=== PATIENT | female | born 1930 | race African-American/Black ===

== ENCOUNTER 2018-12-23 18:06 | Inpatient (IN) | payer MEDICARE, BC ==
[~2018-12-23] VITALS: Ht 152.4 cm; Wt 76.2 kg
[2018-12-23 20:54] LABS: BASOPHILS % 0.7 % (0.0-2.0); EOSINOPHILS % 0.9 % (0.0-5.0); HEMATOCRIT. 33.3 % (36.0-48.0); HEMOGLOBIN. 10.8 g/dL (12.0-16.0); LYMPHOCYTES % 8.6 % (20.0-50.0); MEAN CORPUSCULAR HEMOGLOBIN 30.7 pg (28.0-32.0); MEAN CORPUSCULAR VOLUME 94.8 fL (81.0-99.0); MONOCYTES % 14.1 % (2.0-8.0); NEUTROPHILS % 75.7 % (40.0-76.0); PLATELET 436 x1000/uL (130-400); RED BLOOD CELL COUNT 3.51 mill/uL (4.2-5.4); RED CELL DISTRIBUTION WIDTH 17.6 % (11.6-14.6)
[2018-12-23 20:57] LABS: CHLORIDE 99 mEq/L (98-107)
[2018-12-23 20:58] LABS: INR 1.2; PARTIAL THROMBOPLASTIN TIME 30.3 sec (23.4-31.0); PROTHROMBIN TIME 11.7 sec (9.1-11.1)
[2018-12-23 21:20] LABS: CLARITY URINE CLEAR (CLEAR); COLOR URINE YELLOW (YELLOW); KETONES URINE NEGATIVE (NEGATIVE); LEUKOCYTE ESTERASE URINE NEGATIVE (NEGATIVE); NITRITE URINE NEGATIVE (NEGATIVE); OCCULT BLOOD URINE NEGATIVE (NEGATIVE); PROTEIN URINE 2+ (NEGATIVE); UROBILINOGEN URINE 0.2 E.U./dL (0.2-1.0)
[2018-12-23] MEDS ORDERED: MAGNESIUM/ALUMINUM HYDROXIDE/SIMETHICONE 30ML UDC PO PRN (23:15)
[2018-12-23] MEDS ORDERED: GUAIFENESIN 200MG/10ML SUGAR FREE UDC PO PRN (23:15)
[2018-12-23] MEDS ORDERED: ACETAMINOPHEN 325MG TABLET PO PRN (23:15)
[2018-12-23] MEDS ORDERED: IPRATROPIUM/ALBUTEROL 0.5-3(2.5)MG/3ML NEB INH PRN (23:15)
[2018-12-23] MEDS ORDERED: ONDANSETRON HCL 4MG/2ML INJ IV PRN (23:15)
[2018-12-23] MEDS ORDERED: DIPHENHYDRAMINE 50MG/ML VIAL IV PRN (23:15)
[2018-12-24] MEDS ORDERED: TRAMADOL 50MG TABLET PO PRN
[2018-12-24] MEDS ORDERED: IPRATROPIUM/ALBUTEROL 0.5-3(2.5)MG/3ML NEB HHN PRN
[2018-12-24] MEDS: CLONIDINE 0.1MG TABLET PO PRN (01:34)
[2018-12-24] MEDS ORDERED: INSULIN GLARGINE UD 100 UNITS/ML SYR SUBCUT NR (02:15)
[2018-12-24 03:00] VITALS: BP 107/56
[2018-12-24 03:25] VITALS: BP 107/56
[2018-12-24] MEDS: BLOOD SUGAR DIAGNOSTIC STRIP TEST SCH ×4 (06:40→20:55)
[2018-12-24] MEDS: INSULIN LISPRO 100 UNITS/ML SUBCUT SCH ×4 (06:41→21:00)
[2018-12-24] MEDS: DEXTROSE 50% WATER 50ML SYRINGE IV PRN ×3 (06:42→20:55)
[2018-12-24 07:30] VITALS: BP 149/85
[2018-12-24] MEDS ORDERED: BRIM.2 LEFTEYE (08:40)
[2018-12-24] MEDS ORDERED: GABA-529 PO (08:40)
[2018-12-24] MEDS ORDERED: ACET-2178 PO (08:40)
[2018-12-24] MEDS ORDERED: AGGR MT (08:40)
[2018-12-24] MEDS ORDERED: TRAM50TA3 PO (08:40)
[2018-12-24] MEDS ORDERED: ATOR40TA70 PO (08:40)
[2018-12-24] MEDS ORDERED: AMLO10TA4 PO (08:40)
[2018-12-24] MEDS ORDERED: ALBU05 IH (08:40)
[2018-12-24] MEDS ORDERED: FAMO-135 PO (08:40)
[2018-12-24] MEDS ORDERED: COLL30OI TP (08:47)
[2018-12-24] MEDS ORDERED: LANTUSUD SUBCUT (08:47)
[2018-12-24] MEDS: AMLODIPINE 10MG TABLET PO SCH (10:06)
[2018-12-24] MEDS: SODIUM CHLORIDE 0.9% INJ 3ML FLUSH IVF SCH ×3 (10:10→21:29)
[2018-12-24 12:00] VITALS: BP 145/56
[2018-12-24 16:30] VITALS: BP 131/65
[2018-12-24 20:00] VITALS: BP 127/61
[2018-12-24] MEDS: ATORVASTATIN CALCIUM 40MG TABLET PO SCH (21:29)
[2018-12-24] MEDS: FAMOTIDINE 20MG TABLET PO SCH (21:29)
[2018-12-24] MEDS ORDERED: INSULIN GLARGINE UD 100 UNITS/ML SYR SUBCUT SCH ×2 (22:00)
[2018-12-25] VITALS: BP 107/41
[2018-12-25 04:00] VITALS: BP_SYST 137
[2018-12-25] MEDS: BLOOD SUGAR DIAGNOSTIC STRIP TEST SCH ×4 (05:53→21:01)
[2018-12-25] MEDS: INSULIN LISPRO 100 UNITS/ML SUBCUT SCH ×4 (05:53→21:44)
[2018-12-25] MEDS: SODIUM CHLORIDE 0.9% INJ 3ML FLUSH IVF SCH ×3 (06:41→21:13)
[2018-12-25 07:57] LABS: HEMATOCRIT. 30.5 % (36.0-48.0); HEMOGLOBIN. 9.7 g/dL (12.0-16.0); MEAN CORPUSCULAR HEMOGLOBIN 30.3 pg (28.0-32.0); MEAN CORPUSCULAR VOLUME 94.8 fL (81.0-99.0); MEAN PLATELET VOLUME 8.2 fl (7.4-10.4); PLATELET 344 x1000/uL (130-400); RED BLOOD CELL COUNT 3.22 mill/uL (4.2-5.4); RED CELL DISTRIBUTION WIDTH 18.4 % (11.6-14.6)
[2018-12-25 08:00] VITALS: BP 110/63
[2018-12-25] MEDS: AMLODIPINE 10MG TABLET PO SCH ×2 (09:00→09:21)
[2018-12-25 14:07] LABS: PLATELET ESTIMATE NORMAL
[2018-12-25 16:00] VITALS: BP 131/70
[2018-12-25] MEDS: ATORVASTATIN CALCIUM 40MG TABLET PO SCH (21:13)
[2018-12-25] MEDS: FAMOTIDINE 20MG TABLET PO SCH (21:13)
[2018-12-26] VITALS (17 sets, daily range): BP systolic 112–146; BP diastolic 46–81
[2018-12-26] MEDS: CLONIDINE 0.1MG TABLET PO PRN (00:14)
[2018-12-26] MEDS: SODIUM CHLORIDE 0.9% INJ 3ML FLUSH IVF SCH ×2 (06:11→13:55)
[2018-12-26] MEDS: BLOOD SUGAR DIAGNOSTIC STRIP TEST SCH ×4 (06:11→20:31)
[2018-12-26] MEDS: INSULIN LISPRO 100 UNITS/ML SUBCUT SCH ×4 (06:12→20:31)
[2018-12-26] MEDS ORDERED: CEFAZOLIN 1000MG PREMIX 50 ML IV ONE ×2 (06:45→07:22)
[2018-12-26] MEDS ORDERED: ALTEPLASE 2MG/VIAL ITC ONE (06:45)
[2018-12-26] MEDS ORDERED: SODIUM BICARBONATE 4% (2.4MEQ) 5ML VIAL IV ONE (07:26)
[2018-12-26] MEDS ORDERED: LIDOCAINE HCL 1% 20ML VIAL (Pyxis) INJ ONE (07:26)
[2018-12-26 07:27] LABS: INR 1.1; PARTIAL THROMBOPLASTIN TIME 30.2 sec (23.4-31.0); PROTHROMBIN TIME 11.5 sec (9.1-11.1)
[2018-12-26] MEDS ORDERED: HEPARIN 1000 UNITS/ML 10ML ONE (07:27)
[2018-12-26] MEDS ORDERED: IOHEXOL-300 100 ML BOTTLE ONE (07:27)
[2018-12-26 07:49] LABS: BASOPHILS % 0.5 % (0.0-2.0); EOSINOPHILS % 0.3 % (0.0-5.0); HEMATOCRIT. 27.6 % (36.0-48.0); MEAN CORPUSCULAR HEMOGLOBIN 30.6 pg (28.0-32.0); MEAN CORPUSCULAR VOLUME 94.4 fL (81.0-99.0); NEUTROPHILS % 77.2 % (40.0-76.0); PLATELET 276 x1000/uL (130-400); RED BLOOD CELL COUNT 2.93 mill/uL (4.2-5.4); RED CELL DISTRIBUTION WIDTH 17.4 % (11.6-14.6)
[2018-12-26] MEDS: AMLODIPINE 10MG TABLET PO SCH (09:00)
[2018-12-26] MEDS ORDERED: FENTANYL CITRATE/PF 50MCG/ML 2ML VIAL ONE (09:57)
[2018-12-26] MEDS ORDERED: HEPARIN 5000 UNITS/ML VIAL IV NR (10:45)
== END 2018-12-26 21:16 | DRG 252 ==
LOC: ER 18:14 → 8WST 21:53 → ENRESERV 12-24 02:22
PROVIDERS: ADMIT Internal Medicine; ATTEND Internal Medicine
PROC: 5A1D70Z Performance of Urinary Filtration, Intermittent, Less than 6 Hours Per Day (ICD-10-PCS; 2018-12-24)
PROC: 06HY33Z Insertion of Infusion Device into Lower Vein, Percutaneous Approach (ICD-10-PCS; 2018-12-24)
PROC: B54BZZA Ultrasonography of Right Lower Extremity Veins, Guidance (ICD-10-PCS; 2018-12-24)
PROC: 5A1D70Z Performance of Urinary Filtration, Intermittent, Less than 6 Hours Per Day (ICD-10-PCS; 2018-12-25)
PROC: 037Y3ZZ Dilation of Upper Artery, Percutaneous Approach (ICD-10-PCS; principal; 2018-12-26)
PROC: 057Y3ZZ Dilation of Upper Vein, Percutaneous Approach (ICD-10-PCS; 2018-12-26)
PROC: 03CY3ZZ Extirpation of Matter from Upper Artery, Percutaneous Approach (ICD-10-PCS; 2018-12-26)
PROC: B31J1ZZ Fluoroscopy of Left Upper Extremity Arteries using Low Osmolar Contrast (ICD-10-PCS; 2018-12-26)
PROC: B51N1ZZ Fluoroscopy of Left Upper Extremity Veins using Low Osmolar Contrast (ICD-10-PCS; 2018-12-26)
PROC: B5181ZZ Fluoroscopy of Superior Vena Cava using Low Osmolar Contrast (ICD-10-PCS; 2018-12-26)
PROC: B51W1ZZ Fluoroscopy of Dialysis Shunt/Fistula using Low Osmolar Contrast (ICD-10-PCS; 2018-12-26)
PROC: 3E05317 Introduction of Other Thrombolytic into Peripheral Artery, Percutaneous Approach (ICD-10-PCS; 2018-12-26)
PROC: 3E03317 Introduction of Other Thrombolytic into Peripheral Vein, Percutaneous Approach (ICD-10-PCS; 2018-12-26)
DX: T82.868A Thrombosis due to vascular prosthetic devices, implants and grafts, initial encounter (principal); N18.6 End stage renal disease; I13.2 Hypertensive heart and chronic kidney disease with heart failure and with stage 5 chronic kidney disease, or end stage renal disease; I96 Gangrene, not elsewhere classified; I69.354 Hemiplegia and hemiparesis following cerebral infarction affecting left non-dominant side; E11.52 Type 2 diabetes mellitus with diabetic peripheral angiopathy with gangrene; I48.92 Unspecified atrial flutter; D64.9 Anemia, unspecified; E78.00 Pure hypercholesterolemia, unspecified; I48.91 Unspecified atrial fibrillation; Z99.2 Dependence on renal dialysis; L89.150 Pressure ulcer of sacral region, unstageable; E11.22 Type 2 diabetes mellitus with diabetic chronic kidney disease; I50.9 Heart failure, unspecified; I70.201 Unspecified atherosclerosis of native arteries of extremities, right leg; Y83.8 Other surgical procedures as the cause of abnormal reaction of the patient, or of later complication, without mention of misadventure at the time of the procedure; Y92.89 Other specified places as the place of occurrence of the external cause; Z79.84 Long term (current) use of oral hypoglycemic drugs; Z88.9 Allergy status to unspecified drugs, medicaments and biological substances
CPT/HCPCS: 36415; 36569; 36905; 71045; 76937; 80048; 82962; 84134; 92610; 93005; 99285; C1725; C1752; C1766; C1769; J0690; J1644; J1815; J2997; J3010; J3490; J7050; Q9967

== ENCOUNTER 2019-01-08 19:11 | Inpatient (IN) | payer MEDICARE, BC ==
[~2019-01-08] VITALS: Ht 162.6 cm; Wt 56.7 kg
[~2019-01-08 19:11] MED LIST: ACET-2178 PO; AGGR MT; ALBU05 IH; AMLO10TA4 PO; ATOR40TA70 PO; BRIM.2 LEFTEYE; COLL30OI TP; FAMO-135 PO; GABA-529 PO; LANTUSUD SUBCUT; TRAM50TA3 PO
[2019-01-08 23:00] LABS: HEMATOCRIT. 30.3 % (36.0-48.0); HEMOGLOBIN. 9.5 g/dL (12.0-16.0); MEAN CORPUSCULAR HEMOGLOBIN 30.4 pg (28.0-32.0); MEAN CORPUSCULAR VOLUME 97.4 fL (81.0-99.0); MEAN PLATELET VOLUME 8.4 fl (7.4-10.4); PLATELET 299 x1000/uL (130-400); RED BLOOD CELL COUNT 3.11 mill/uL (4.2-5.4); RED CELL DISTRIBUTION WIDTH 20.5 % (11.6-14.6)
[2019-01-08 23:03] LABS: CHLORIDE 93 mEq/L (98-107)
[2019-01-08 23:08] LABS: INR 1.2; PARTIAL THROMBOPLASTIN TIME 23.5 sec (23.4-31.0); PROTHROMBIN TIME 11.7 sec (9.1-11.1)
[2019-01-08 23:11] LABS: PHOSPHORUS 5.4 mg/dL (2.5-4.9)
[2019-01-08 23:12] LABS: PLATELET ESTIMATE NORMAL
[2019-01-09] MEDS ORDERED: ASPIRIN 81MG TABLET PO ONE
[2019-01-09] MEDS ORDERED: TRAMADOL 50MG TABLET PO PRN (00:30)
[2019-01-09] MEDS ORDERED: ONDANSETRON HCL 4MG/2ML INJ IV PRN (00:30)
[2019-01-09] MEDS ORDERED: LORAZEPAM 2MG/ML CPJ IV PRN (00:30)
[2019-01-09] MEDS ORDERED: CLONIDINE 0.1MG TABLET PO PRN (00:30)
[2019-01-09] MEDS ORDERED: ACETAMINOPHEN 325MG TABLET PO PRN (00:30)
[2019-01-09] MEDS ORDERED: IPRATROPIUM/ALBUTEROL 0.5-3(2.5)MG/3ML NEB INH PRN (00:30)
[2019-01-09] MEDS ORDERED: MAGNESIUM/ALUMINUM HYDROXIDE/SIMETHICONE 30ML UDC PO PRN (00:30)
[2019-01-09] MEDS ORDERED: INSULIN REGULAR (HUMULIN R) 300UNITS/3ML SUBCUT ONE (00:45)
[2019-01-09 10:00] VITALS: BP 128/53
[2019-01-09 10:30] VITALS: BP 128/53
[2019-01-09] MEDS: SODIUM CHLORIDE 0.9% INJ 3ML FLUSH IVF SCH ×3 (14:00→21:39)
[2019-01-09] MEDS: AMLODIPINE 10MG TABLET PO SCH (15:38)
[2019-01-09] MEDS: ASPIRIN 81MG EC TABLET PO SCH (15:38)
[2019-01-09] MEDS: ENOXAPARIN 80MG/0.8ML SYR SUBCUT SCH (15:43)
[2019-01-09 16:00] VITALS: BP 117/62
[2019-01-09] MEDS ORDERED: DEXTROSE 50% WATER 50ML SYRINGE IV PRN (19:45)
[2019-01-09 20:00] VITALS: BP 116/60
[2019-01-09] MEDS: INSULIN LISPRO 100 UNITS/ML SUBCUT SCH (21:00)
[2019-01-09] MEDS: FAMOTIDINE 20MG TABLET PO SCH (21:23)
[2019-01-09] MEDS: BLOOD SUGAR DIAGNOSTIC STRIP TEST SCH (21:23)
[2019-01-09] MEDS: ATORVASTATIN CALCIUM 40MG TABLET PO SCH (21:23)
[2019-01-09] MEDS: INSULIN GLARGINE UD 100 UNITS/ML SYR SUBCUT SCH (21:40)
[2019-01-10] VITALS (11 sets, daily range): BP systolic 104–144; BP diastolic 48–68
[2019-01-10] MEDS: BLOOD SUGAR DIAGNOSTIC STRIP TEST SCH ×4 (05:59→21:00)
[2019-01-10] MEDS: SODIUM CHLORIDE 0.9% INJ 3ML FLUSH IVF SCH ×2 (05:59→14:00)
[2019-01-10 06:27] LABS: INR 1.1; PARTIAL THROMBOPLASTIN TIME 30.3 sec (23.4-31.0); PROTHROMBIN TIME 11.4 sec (9.1-11.1)
[2019-01-10 06:55] LABS: HEMATOCRIT. 26.8 % (36.0-48.0); HEMOGLOBIN. 8.6 g/dL (12.0-16.0); MEAN CORPUSCULAR VOLUME 96.2 fL (81.0-99.0); MEAN PLATELET VOLUME 8.7 fl (7.4-10.4); PLATELET 316 x1000/uL (130-400); RED BLOOD CELL COUNT 2.79 mill/uL (4.2-5.4); RED CELL DISTRIBUTION WIDTH 19.5 % (11.6-14.6)
[2019-01-10] MEDS: INSULIN LISPRO 100 UNITS/ML SUBCUT SCH ×4 (07:50→21:00)
[2019-01-10] MEDS: AMLODIPINE 10MG TABLET PO SCH (09:00)
[2019-01-10] MEDS: ASPIRIN 81MG EC TABLET PO SCH (09:00)
[2019-01-10 13:02] LABS: PLATELET ESTIMATE NORMAL
[2019-01-10] MEDS ORDERED: SODIUM BICARBONATE 4% (2.4MEQ) 5ML VIAL IV ONE (13:10)
[2019-01-10] MEDS ORDERED: LIDOCAINE HCL 1% 20ML VIAL (Pyxis) INJ ONE (13:10)
[2019-01-10] MEDS ORDERED: IOHEXOL-300 100 ML BOTTLE ONE (13:11)
[2019-01-10] MEDS ORDERED: HEPARIN 1000 UNITS/ML 10ML ONE (13:11)
[2019-01-10] MEDS ORDERED: CEFAZOLIN 1000MG PREMIX 50 ML IV ONE ×2 (13:15→13:50)
[2019-01-10] MEDS ORDERED: HEPARIN 5000 UNITS/ML VIAL IV ONE (15:30)
[2019-01-10] MEDS ORDERED: HEPARIN 5000 UNITS/ML VIAL IV NR (15:30)
[2019-01-10] MEDS: ENOXAPARIN 80MG/0.8ML SYR SUBCUT SCH (17:32)
[2019-01-10] MEDS: FAMOTIDINE 20MG TABLET PO SCH (21:00)
[2019-01-10] MEDS: ATORVASTATIN CALCIUM 40MG TABLET PO SCH (21:00)
[2019-01-10] MEDS: INSULIN GLARGINE UD 100 UNITS/ML SYR SUBCUT SCH (22:00)
[2019-01-11] VITALS (7 sets, daily range): BP systolic 101–130; BP diastolic 41–54
[2019-01-11] MEDS: INSULIN LISPRO 100 UNITS/ML SUBCUT SCH ×4 (06:33→21:00)
[2019-01-11] MEDS: BLOOD SUGAR DIAGNOSTIC STRIP TEST SCH ×4 (06:33→21:26)
[2019-01-11] MEDS: SODIUM CHLORIDE 0.9% INJ 3ML FLUSH IVF SCH ×2 (06:35→18:12)
[2019-01-11 07:03] LABS: BASOPHILS % 0.2 % (0.0-2.0); EOSINOPHILS % 0.1 % (0.0-5.0); HEMATOCRIT. 25.5 % (36.0-48.0); MEAN CORPUSCULAR HEMOGLOBIN 30.5 pg (28.0-32.0); MEAN CORPUSCULAR VOLUME 97.2 fL (81.0-99.0); MEAN PLATELET VOLUME 8.8 fl (7.4-10.4); MONOCYTES % 8.5 % (2.0-8.0); NEUTROPHILS % 81.2 % (40.0-76.0); PLATELET 308 x1000/uL (130-400); RED BLOOD CELL COUNT 2.62 mill/uL (4.2-5.4); RED CELL DISTRIBUTION WIDTH 20.5 % (11.6-14.6)
[2019-01-11] MEDS: ASPIRIN 81MG EC TABLET PO SCH (08:51)
[2019-01-11] MEDS: AMLODIPINE 10MG TABLET PO SCH (08:51)
[2019-01-11] MEDS ORDERED: EPINEPHRINE 0.1MG/ML (1:10,000) 10ML SYR ONE (10:57)
[2019-01-11] MEDS ORDERED: IPRATROPIUM/ALBUTEROL 0.5-3(2.5)MG/3ML NEB HHN NR (12:15)
[2019-01-11 12:56] LABS: BG BASE EXCESS 3.8 mmol/L (-2.0-2.0); BG CARBOXYHEMOGLOBIN 0.3 % (0.5-1.5); BG DEOXYHEMOGLOBIN 5.3 % (0.0-5.0); BG FRACTION INSPIRED OXYGEN 32; BG HCO3 ACT 26.6 mmol/L (22.0-26.0); BG METHEMOGLOBIN 0.4 % (0.0-1.5); BG OXYGEN SATURATION 94.7 % (92.0-98.5); BG PCO2 32.9 mmHg (35.0-45.0); BG PH 7.525 (7.350-7.450); BG PO2 74.7 mmHg (75.0-100.0); BG SAMPLE SITE RIGHT BRACHIAL; BG TOTAL HEMOGLOBIN 8.9 g/dL (12.0-18.0); BG VENT MODE NASAL CANNULA
[2019-01-11] MEDS ORDERED: PIPERACILLIN/TAZ 2.25G PREMIX 50 ML IV SCH (18:00)
[2019-01-11] MEDS ORDERED: IPRATROPIUM/ALBUTEROL 0.5-3(2.5)MG/3ML NEB HHN SCH (18:00)
[2019-01-11] MEDS: ENOXAPARIN 80MG/0.8ML SYR SUBCUT SCH (18:23)
[2019-01-11] MEDS: FAMOTIDINE 20MG TABLET PO SCH (21:00)
[2019-01-11] MEDS: ATORVASTATIN CALCIUM 40MG TABLET PO SCH (21:00)
[2019-01-12] MEDS ORDERED: EPINEPHRINE 4 MG in SODIUM CHLORIDE 0.9% 246 ML IV PRN (01:45)
[2019-01-12] MEDS ORDERED: EPINEPHRINE 0.1MG/ML (1:10,000) 10ML SYR ONE ×2 (13:53→14:26)
[2019-01-12] MEDS ORDERED: LIDOCAINE HCL 2% 5ML SYRINGE IV ONE (13:53)
[2019-01-12] MEDS ORDERED: SODIUM BICARBONATE 7.5% 0.9 MEQ/ML 50ML SYR IV ONE (13:53)
[2019-01-12] MEDS ORDERED: SODIUM BICARBONATE 8.4% 1 MEQ/ML 50ML SYR IV ONE (14:26)
== END 2019-01-12 02:00 | disposition expired | DRG 252 ==
LOC: ER 19:11 → 6WST 01-09 00:31 → EDBEDREQDT 01-09 01:23 → EDBEDREQTM 01-09 01:23 → EDBEDREQ 01-09 01:23 → ENRESERV 01-09 08:00 → MICUNO 01-12 01:29
PROVIDERS: ADMIT Internal Medicine; ATTEND Internal Medicine
PROC: 03CY3ZZ Extirpation of Matter from Upper Artery, Percutaneous Approach (ICD-10-PCS; 2019-01-10)
PROC: 05CY3ZZ Extirpation of Matter from Upper Vein, Percutaneous Approach (ICD-10-PCS; 2019-01-10)
PROC: 5A1D70Z Performance of Urinary Filtration, Intermittent, Less than 6 Hours Per Day (ICD-10-PCS; 2019-01-10)
PROC: B31N1ZZ Fluoroscopy of Other Upper Arteries using Low Osmolar Contrast (ICD-10-PCS; 2019-01-10)
PROC: B518ZZZ Fluoroscopy of Superior Vena Cava (ICD-10-PCS; 2019-01-10)
PROC: 5A1935Z Respiratory Ventilation, Less than 24 Consecutive Hours (ICD-10-PCS; principal; 2019-01-12)
PROC: 5A12012 Performance of Cardiac Output, Single, Manual (ICD-10-PCS; 2019-01-12)
PROC: 0BH17EZ Insertion of Endotracheal Airway into Trachea, Via Natural or Artificial Opening (ICD-10-PCS; 2019-01-12)
PROC: 079T3ZX Drainage of Bone Marrow, Percutaneous Approach, Diagnostic (ICD-10-PCS; 2019-01-12)
PROC: 5A1D70Z Performance of Urinary Filtration, Intermittent, Less than 6 Hours Per Day (ICD-10-PCS; 2019-01-12)
DX: T82.868A Thrombosis due to vascular prosthetic devices, implants and grafts, initial encounter (principal); N18.6 End stage renal disease; J96.00 Acute respiratory failure, unspecified whether with hypoxia or hypercapnia; E11.52 Type 2 diabetes mellitus with diabetic peripheral angiopathy with gangrene; I13.2 Hypertensive heart and chronic kidney disease with heart failure and with stage 5 chronic kidney disease, or end stage renal disease; I96 Gangrene, not elsewhere classified; I69.354 Hemiplegia and hemiparesis following cerebral infarction affecting left non-dominant side; I82.419 Acute embolism and thrombosis of unspecified femoral vein; F03.90 Unspecified dementia, unspecified severity, without behavioral disturbance, psychotic disturbance, mood disturbance, and anxiety; E11.22 Type 2 diabetes mellitus with diabetic chronic kidney disease; D64.9 Anemia, unspecified; Y83.2 Surgical operation with anastomosis, bypass or graft as the cause of abnormal reaction of the patient, or of later complication, without mention of misadventure at the time of the procedure; I50.9 Heart failure, unspecified; E78.00 Pure hypercholesterolemia, unspecified; L08.9 Local infection of the skin and subcutaneous tissue, unspecified; K21.9 Gastro-esophageal reflux disease without esophagitis; L89.159 Pressure ulcer of sacral region, unspecified stage; Y82.8 Other medical devices associated with adverse incidents; I46.9 Cardiac arrest, cause unspecified; Z99.2 Dependence on renal dialysis; Z88.8 Allergy status to other drugs, medicaments and biological substances; Y92.89 Other specified places as the place of occurrence of the external cause; Z79.899 Other long term (current) drug therapy; Z79.82 Long term (current) use of aspirin; Z86.718 Personal history of other venous thrombosis and embolism
CPT/HCPCS: 36415; 36600; 36901; 36904; 71045; 71250; 80048; 82375; 82805; 82962; 83735; 84100; 84145; 84484; 86850; 86900; 92950; 93005; 93970; 94002; 94640; 96372; 99291; C1725; C1766; C1769; C1893; C2630; J0690; J1644; J1650; J1815; J2543; J3490; J7040; J7050; J7620; Q9967